=== PATIENT | male | born 1960 | race Caucasian/White ===

== ENCOUNTER → 2016-12-19 08:32 | Outpatient (CLI) | payer OTHER ==
[2013-06-13 07:21] VITALS: BMI 31.8
[~2016-12-19 08:32] MED LIST: ASPIRIN325 MG PO; FLUTICASONE PRO16 GM NS; GLUCOPHAGE1000 MG PO; PLAVIX75 MG PO; POTASSIUM99 M1 PO; TOPROL XL50 MG PO; ZESTORETIC 20/11 TAB PO; ZOCOR20 MG PO
== END | disposition home or self-care (01) ==
LOC: D.CT 08:32
DX: R10.32 Left lower quadrant pain (principal)

== ENCOUNTER → 2017-01-01 15:15 | Outpatient (CLI) | payer OTHER ==
[2013-06-13 07:21] VITALS: BMI 31.8
[2017-01-01 15:50] LABS: ALBUMIN 4.8 g/dL (3.4-5.0); BILIRUBIN - DIRECT 0.11 mg/dL (0.00-0.30); BILIRUBIN - INDIRECT 0.33 mg/dL (0.00-1.00); BILIRUBIN - TOTAL 0.44 mg/dL (0.2-1.3); PROTEIN - SERUM 8.8 g/dL (6.4-8.2)
== END | disposition home or self-care (01) ==
LOC: D.LAB 15:15
PROVIDERS: Internal Medicine Gastroenterology
DX: R10.9 Unspecified abdominal pain (principal)

== ENCOUNTER → 2017-01-08 14:13 | Outpatient (CLI) | payer OTHER ==
[2013-06-13 07:21] VITALS: BMI 31.8
== END | disposition home or self-care (01) ==
LOC: D.CT 14:13
DX: R10.32 Left lower quadrant pain (principal)

== ENCOUNTER → 2017-01-23 08:00 | Outpatient (CLI) | payer OTHER ==
[2013-06-13 07:21] VITALS: BMI 31.8
== END | disposition home or self-care (01) ==
LOC: D.RAD 08:00
DX: R10.9 Unspecified abdominal pain (principal); K59.00 Constipation, unspecified

== ENCOUNTER 2017-04-09 05:44 | Day surgery (SDC) | payer MEDICARE ==
[2017-04-08 15:02] LABS: HEMATOCRIT 44.1 % (42.0-54.0); MCH 29.6 pg (26.0-34.0); MCV 87.2 fL (80.0-100.0); MEAN PLATELET VOLUME 11.1 fL (7.4-10.4); RBC 5.06 10x6/uL (4.20-6.10); RDW 13.1 % (11.5-14.5)
[2017-04-08 15:10] LABS: ANION GAP 17.4 mmol/L (8-16); CALCIUM 9.4 mg/dL (8.5-10.1); CARBON DIOXIDE 25.2 mmol/L (21.0-32.0); CREATININE - SERUM 1.6 mg/dL (0.6-1.3); POTASSIUM - SERUM 4.6 mmol/L (3.5-5.1)
[~2017-04-09] VITALS: Ht 180.3 cm; Wt 107.0 kg
[~2017-04-09 05:44] MED LIST changes: +CO Q-1050 MG PO; +CRESTOR5 MG PO; +GLIMEPIRIDE2 MG PO; +JANUVIA100 MG PO; +LISINOPRIL5 MG PO
[2017-04-09 06:50] VITALS: BP 116/82; Ht 180.3 cm; Wt 107.0 kg
--- NOTE | 2017-04-10 15:49 | OP ---
PATIENT NAME: SHAN AREVALO MEDICAL RECORD: [id number] :60 LOCATION:.[facility] ADMISSION DATE: SURGEON: SHAN PARKINSON MD DATE OF OPERATION: 04/09/2017 SURGEON: Shan Parkinson MD ANESTHESIA: MAC. PREOPERATIVE DIAGNOSIS: Elevated prostate-specific antigen 5.75. POSTOPERATIVE DIAGNOSIS: Elevated prostate-specific antigen 5.75. PROCEDURES PERFORMED: Transrectal ultrasound and prostate biopsy. FINDINGS: 16 mL prostate, no hypoechoic areas. SPECIMENS: Prostate biopsy cores. ESTIMATED BLOOD LOSS: None. CLINICAL HISTORY: The patient is a 57-year-old male with no voiding symptoms. He has an elevated PSA of 5.75. There is no family history of prostate cancer. Digital rectal examination revealed a small prostate with no palpable abnormalities. Due to his relatively young age and high PSA, he is going to have a prostate biopsy performed. He did take Bactrim for several days prior to the procedure. He was also advised to have a Fleet enema, but he neglected to do so. He did, however, have a bowel movement last night. Today we gave him Ancef 2 grams and gentamicin 80 mg IV risk control specialist to the OR. DESCRIPTION OF PROCEDURE: The patient was given IV sedation. He was placed in the dorsal lithotomy position and prepped and draped. The transrectal ultrasound probe was introduced into the rectum and measurements of the prostate were obtained. No hypoechoic areas were seen. Prostatic volume was calculated at 16 mL. We divided the prostate into 6 zones namely the right and left apex, mid and basal zones. From each zone, multiple biopsy cores were obtained. These were sent in 6 individual containers with all the specimens from one zone combined. At the end of procedure, the patient was not seemed to have any visible bleeding. He was brought to the preoperative holding area for discharge home. I will see him in followup next week to review the pathology results. TRANSINT:[id number] Voice Confirmation ID: [id number] DOCUMENT ID: [id number] SAHN PARKINSON MD at 1549 CC: [id number] DICTATION DATE: 04/09/17 1012 [employer] OPERATOR: 04/09/17 1652 [facility] 04/09/17 [place] [address]
== END 2017-04-09 11:00 | disposition home or self-care (01) ==
LOC: D.OPS 05:44 → D.PAN 08:15 → D.OPS 08:15
PROVIDERS: Anesthesiology
DX: C61 Malignant neoplasm of prostate (principal)

== ENCOUNTER → 2017-04-24 08:01 | Outpatient (CLI) | payer OTHER ==
[2017-04-09 06:50] VITALS: BMI 32.9
== END | disposition home or self-care (01) ==
LOC: D.NM 08:01
DX: C61 Malignant neoplasm of prostate (principal)

== ENCOUNTER → 2017-10-28 10:08 | Outpatient (CLI) | payer OTHER ==
[2017-04-09 06:50] VITALS: BMI 32.9
== END | disposition home or self-care (01) ==
LOC: D.RAD 10:08
DX: Z02.71 Encounter for disability determination (principal)